=== PATIENT | male | born 1985 | race African-American/Black ===

== ENCOUNTER 2017-05-12 01:09 | Emergency (ER) | payer SELFPAY ==
[2017-05-12 01:50] VITALS: BP 128/81
[2017-05-12] MEDS ORDERED: DEXAMETHASONE SOD PHOS INJ 10 MG/1 ML VIAL IM ONE (04:34)
--- NOTE | 2017-05-12 05:26 | RADIOLOGY REPORT (SQ) ---
EXAM DESCRIPTION: ELBOW RIGHT AP/LAT COMPLETED DATE/TIME: 05/12/2017 4:59 am REASON FOR STUDY: right elbow pain COMPARISON: None. NUMBER OF VIEWS: Four views. TECHNIQUE: AP, lateral, and both oblique radiographic images acquired of the right elbow. LIMITATIONS: None. FINDINGS: MINERALIZATION: Normal. BONES: No acute fracture or dislocation. No worrisome bone lesions. JOINT: No effusion. SOFT TISSUES: Moderate nonspecific swelling at the lateral aspect of the right elbow. OTHER: No other significant finding. IMPRESSION: Moderate swelling. Bones and joints appear intact. No effusion. TECHNICAL DOCUMENTATION: JOB ID: [id number] [employer]- All Rights Reserved
--- NOTE | 2017-05-12 05:51 | ER Document Report ---
ED General - General Chief Complaint: Cough Stated Complaint: CHEST PAIN COLD LIKE SYMPTOMS Time Seen by Provider: 05/12/17 04:28 Notes: Patient is 31-year-old male who presents with complaint of pain in his right elbow. Patient says 3 weeks ago he was punching a punching bag any punch awkwardly and he felt something pop just above his elbow on the posterior aspect. Since then he has had swelling and pain in this area. Denies any pain in the shoulder wrist or hand. Says he is pain mainly when he tries to fully extend his elbow. Patient's second complaint is some runny nose cough and congestion. He says that his nephews is all have also had runny nose cough and congestion there diagnosed with strep throat and placed on amoxicillin. Denies any vomiting or diarrhea. He denies any fevers at home. His temperature in triage was 99.8. TRAVEL OUTSIDE OF THE [place] IN LAST 30 DAYS: No - Related Data Allergies/Adverse Reactions: clindamycin [Clindamycin] Allergy (Verified 07/27/14 15:31) Past Medical History - Social History Smoking Status: Unknown if Ever Smoked Frequency of alcohol use: None Drug Abuse: None Family History: Reviewed & Not Pertinent Patient has suicidal ideation: No Patient has homicidal ideation: No - Past Medical History Cardiac Medical History: Denies: Hx Hypertension Endocrine Medical History: Denies: Hx Diabetes Mellitus Type 2 Renal/ Medical History: Denies: Hx Peritoneal Dialysis - Immunizations Hx Diphtheria, Pertussis, Tetanus Vaccination: Yes Review of Systems - Review of Systems Notes: My Normal Review Basic REVIEW OF SYSTEMS: CONSTITUTIONAL : Denies fever, chills, or sweats. EENT: Is a congestion. CARDIOVASCULAR: Denies chest pain. RESPIRATORY: Cough GASTROINTESTINAL: Denies abdominal pain. Denies nausea, vomiting, or diarrhea. Denies constipation. Last BM: GENITOURINARY: Denies difficulty urinating, painful urination, burning, frequency, or blood in urine. MUSCULOSKELETAL: Right elbow pain. SKIN: Denies rash or skin lesions. NEUROLOGICAL: Denies altered mental status or loss of consciousness. Denies headache. Denies weakness or paralysis or loss of use of either side. Denies problems with gait or speech. Denies sensory or motor loss. ALL OTHER SYSTEMS REVIEWED AND NEGATIVE. Physical Exam - Vital signs Vitals: Temp Pulse Resp BP Pulse Ox 99.8 F 102 H 18 128/81 H 96 05/12/17 01:46 05/12/17 01:46 05/12/17 01:46 05/12/17 01:46 05/12/17 01:46 - Notes Notes: General Appearance: Well nourished, alert, cooperative, no acute distress, no obvious discomfort. Well-appearing. Vitals: reviewed, See vital signs table. Head: no swelling or tenderness to the head Eyes: PERRL, EOMI, Conjuctiva clear Mouth: No decreasd moisture Throat: No tonsillar inflammation, No airway obstruction, No lymphadenopathy Nose: Audible congestion on exam. Neck: Supple, no neck tenderness, Lungs: No wheezing, No rales, No rhonci, No accessory muscle use, good air exchange bilaterally. Heart: Normal rate, Regular rythm, No murmur, no rub Extremities: strength 5/5 in all extremities, good pulses in all extremities, patient does have some visible swelling over the triceps insertion just proximal to the elbow. No redness or inflammation. Patient is able to fully flex his elbow without any difficulty. Patient is able to almost completely extend his elbow but does have pain when he gets near the end of extension., no edema. Skin: warm, dry, appropriate color, no rash Neuro: speech clear, oriented x 3, normal affect, responds appropriately to questions. Course - Re-evaluation Re-evalutation: 05/12/17 06:18 I suspect the patient probably has a partial triceps muscle or triceps tendon tear. I will give him a sling to wear. I will have him follow-up with orthopedics. I encouraged him not to do any heavy lifting. Patient's also has just what appears to be upper respiratory infection. His red is not significantly erythematous. There is no tonsillar hypertrophy or exudates. He has a cough. I informed him that his symptoms are not consistent with that of strep throat. Does have a lot of nasal congestion consistent with that of a cold. I will give him a dose of Decadron to help with the sinus pressure and congestion that he is having. I encouraged him to return to the ER if he has fevers, difficulty breathing, or feels that he is getting worse. Patient agrees with plan and will be discharged home. Dictation of this chart was performed using voice recognition software; therefore, there may be some unintended grammatical errors. - Vital Signs Vital signs: Temp Pulse Resp BP Pulse Ox 99.8 F 102 H 18 128/81 H 96 05/12/17 01:46 05/12/17 01:46 05/12/17 01:46 05/12/17 01:46 05/12/17 01:46 Discharge - Discharge Clinical Impression: Elbow pain, right URI (upper respiratory infection) Qualifiers: URI type: unspecified URI Qualified Code(s): J06.9 - Acute upper respiratory infection, unspecified Condition: Good Disposition: HOME, SELF-CARE Additional Instructions: UPPER RESPIRATORY ILLNESS: You have a viral infection of the respiratory passages -- a "cold." This common infection causes nasal congestion, drainage, and often sore throat and cough. It is highly contagious. The disease usually lasts about 10 to 14 days. There is no "cure" for the viral infection -- it must run its course. If there is a complication, such as bacterial infection in the nose, sinuses, middle ear, or bronchial tubes, antibiotics may be required. The antibiotics won't affect the virus. Drink plenty of fluids. A humidifier may help. An expectorant medication or decongestant may make you more comfortable. Use acetaminophen or ibuprofen for fever or aches. See the doctor if fever persists over two days, if there is any significant worsening of your symptoms, or if you simply fail to improve as expected. STEROID MEDICATION: You have been given an injection of medicine of the cortisone/steroid class called Decadron. This medication is used to control inflammation or allergy. Piter t is usually only given for a short period of time, until the acute process subsides. There are usually no side effects from short-term use of cortisone-like medications. Some persons feel an increased sense of well-being and are not sleepy at bedtime. Long-term use of cortisone medications is best avoided, unless required for a severe condition. If your condition does not remit, or relapses after the course of corticosteroid medication, you should consult your physician. FOLLOW-UP CARE: If you have been referred to a physician for follow-up care, call the physician s office for an appointment as you were instructed or within the next two days. If you experience worsening or a significant change in your symptoms, notify the physician immediately or return to the Emergency Department at any time for re-evaluation. Please return to the ER immediately if you develop difficulty breathing, fevers not responding to Tylenol, or feel that your symptoms are worsening. Your xray did not show and broken bones, but it does show swelling over the elbow. This suggests that you most likely have a ligament or partial muscle tear. Please wear the sling for support and follow up with the orthopedist, (Dr. Johnson). Forms: Return to Work Referrals: JOSE E SHAH MD [ACTIVE STAFF] - Follow up in 3-5 days
== END 2017-05-12 06:20 | disposition home or self-care (01) ==
LOC: ER 01:09
DX: M25.521 Pain in right elbow (principal); M79.89 Other specified soft tissue disorders; J06.9 Acute upper respiratory infection, unspecified; R05 Cough; R09.81 Nasal congestion; R09.89 Other specified symptoms and signs involving the circulatory and respiratory systems; Z20.818 Contact with and (suspected) exposure to other bacterial communicable diseases; Z88.1 Allergy status to other antibiotic agents
CPT/HCPCS: 99283; 96372; 73070; J1100

== ENCOUNTER 2019-04-08 14:15 | Emergency (ER) | payer SELFPAY ==
[2019-04-08] MEDS ORDERED: ACETAMINOPHEN 325 MG TABLET PO ONE (14:51)
--- NOTE | 2019-04-08 15:24 | RADIOLOGY REPORT (SQ) ---
EXAM DESCRIPTION: SHOULDER RIGHT 2 OR MORE VIEWS COMPLETED DATE/TIME: 04/08/2019 3:13 pm REASON FOR STUDY: R shoulder pain COMPARISON: None. NUMBER OF VIEWS: Three views. TECHNIQUE: Internal rotation, external rotation, and Y view images acquired of the right shoulder. LIMITATIONS: None. FINDINGS: MINERALIZATION: Normal. BONES: No acute fracture. No worrisome bone lesions. JOINTS: No dislocation. VISUALIZED LUNGS AND RIBS: No pneumothorax. No rib fracture. SOFT TISSUES: No radiopaque foreign body. OTHER: No other significant finding. IMPRESSION: NEGATIVE STUDY OF THE RIGHT SHOULDER. NO RADIOGRAPHIC EVIDENCE OF ACUTE INJURY. TECHNICAL DOCUMENTATION: JOB ID: [id number] [employer]- All Rights Reserved Reading location - IP/workstation name: [email or web address]
--- NOTE | 2019-04-08 15:46 | ER Document Report ---
HPI - HPI Patient complains to provider of: r shoulder pain Time Seen by Provider: 04/08/19 14:37 Onset: Other - 2 wks Onset/Duration: Persistent Quality of pain: Achy Pain Level: 2 Context: Patient states that he slept on his right arm wrong and developed right shoulder pain that radiates into the right upper extremity. Patient complains of some numbness and tingling to the right forearm. Patient is right-hand dominant. Patient does do a lot of heavy lifting at his job. Patient denies any specific injury. Patient complains of increased pain with extension and abduction of the right shoulder joint. Associated Symptoms: Other - r shoulder joint pain. denies: Fever, Headache Exacerbated by: Movement Relieved by: Denies Similar symptoms previously: No Recently seen / treated by doctor: No - ROS ROS below otherwise negative: Yes Systems Reviewed and Negative: Yes All other systems reviewed and negative - CONSTITUTIONAL Constitutional: DENIES: Fever, Chills - NEURO Neurology: DENIES: Weakness - GASTROINTESTINAL Gastrointestinal: DENIES: Nausea - MUSCULOSKELETAL Musculoskeletal: REPORTS: Extremity pain - RUE. DENIES: Neck Pain - DERM Skin Color: Normal Skin Problems: None Past Medical History - General Information source: Patient - Social History Smoking Status: Current Every Day Smoker Chew tobacco use (# tins/day): No Smoking Education Provided: Yes Frequency of alcohol use: None Drug Abuse: None Occupation: moving and storage Family History: Reviewed & Not Pertinent Patient has suicidal ideation: No Patient has homicidal ideation: No - Medical History Medical History: Negative - Past Medical History Cardiac Medical History: Denies: Hx Hypertension Endocrine Medical History: Denies: Hx Diabetes Mellitus Type 2 Renal/ Medical History: Denies: Hx Peritoneal Dialysis Surgical Hx: Negative - Immunizations Hx Diphtheria, Pertussis, Tetanus Vaccination: Yes Vertical Provider Document - CONSTITUTIONAL Agree With Documented VS: Yes Exam Limitations: No Limitations General Appearance: WD/WN, No Apparent Distress - INFECTION CONTROL TRAVEL OUTSIDE OF THE [place] IN LAST 30 DAYS: No - HEENT HEENT: Atraumatic, Normocephalic - NECK Neck: Normal Inspection, Supple. negative: Lymphadenopathy-Left, Lym phadenopathy-Right Notes: No midline tenderness step-off or deformity - RESPIRATORY Respiratory: Breath Sounds Normal, No Respiratory Distress - CARDIOVASCULAR Cardiovascular: Regular Rate, Regular Rhythm Pulses: Normal: Radial - BACK Back: Normal Inspection - MUSCULOSKELETAL/EXTREMETIES Musculoskeletal/Extremeties: MAEW, Tender - Right shoulder joint tenderness with abduction, no dislocation or deformity. No crepitus. Patient with full passive range of motion., No Edema - NEURO Level of Consciousness: Awake, Alert, Appropriate Motor/Sensory: No Motor Deficit Notes: Normal strength and muscle tone to bilateral upper extremities. Normal it security project manager bilaterally. No evidence of radial, ulnar or median nerve deficit. - DERM Integumentary: Warm, Dry Course - Re-evaluation Re-evalutation: 04/08/19 15:44 Patient concerned that he needs x-ray performed today. X-ray reviewed, no concern for any bony abnormality to explain his pain symptoms. Patient does do heavy lifting at work. Discussed with patient concern about possible soft tissue injury and need for orthopedic or neurology follow-up for further evaluation. With distraction patient able to move her right shoulder through full range of motion. - Vital Signs Vital signs: Temp Pulse Resp BP Pulse Ox 98.5 F 75 14 132/64 H 98 04/08/19 14:24 04/08/19 14:24 04/08/19 14:24 04/08/19 14:24 04/08/19 14:24 - Diagnostic Test Radiology reviewed: Image reviewed, Reports reviewed Procedures - Immobilization Right Shoulder Pre-Proc Neuro Vasc Exam: Normal Immobilizer type: Shoulder immobilizer Performed by: PCT Post-Proc Neuro Vasc Exam: Normal Alignment checked and good: Yes Discharge - Discharge Clinical Impression: Right shoulder pain Qualifiers: Chronicity: acute Qualified Code(s): M25.511 - Pain in right shoulder Condition: Stable Disposition: HOME, SELF-CARE Instructions: Shoulder Injury ([facility]), Temporary Sling ([facility]) Additional Instructions: Return immediately for any new or worsening symptoms Followup with your primary care provider, call tomorrow to make a followup appointment Perform gentle range of motion exercises daily Wear shoulder immobilizer only for 3 or 4 days and then remove. Follow-up with orthopedics for further evaluation, call tomorrow for an appointment Prescriptions: Cyclobenzaprine HCl [Flexeril 10 Mg Tablet] 10 mg PO TID #15 tablet Naproxen [Naprosyn 250 Nmg Tablet] 1 tab PO BID #14 tablet Forms: Smoking Cessation Education, Restricted Release, Return to Work Referrals: [facility] [Provider Group] - Follow up tomorrow
[2019-04-08 15:55] VITALS: BP 128/72
== END 2019-04-08 15:54 | disposition home or self-care (01) ==
LOC: ER 14:15
DX: M25.511 Pain in right shoulder (principal); M79.601 Pain in right arm; R20.0 Anesthesia of skin; X50.0XXA Overexertion from strenuous movement or load, initial encounter; F17.200 Nicotine dependence, unspecified, uncomplicated
CPT/HCPCS: 73030; L3650; 99283

== ENCOUNTER 2019-05-17 00:23 | Emergency (ER) | payer SELFPAY ==
[2019-05-17 00:35] VITALS: BP 144/94
[2019-05-17] MEDS ORDERED: LIDOCAINE 1% INJ-PF (10 MG/ML) 30 ML SDV INJ ONE (04:40)
[2019-05-17] MEDS ORDERED: LIDOCAINE 4% TRANSPARENT DRESSING 5 GM KIT TP ONE (04:41)
[2019-05-17] MEDS ORDERED: ONDANSETRON 4 MG TAB.RAPDIS PO ONE (04:46)
[2019-05-17] MEDS ORDERED: OXYCODONE-ACETAMINOPHEN 5-325 MG TABLET PO ONE (04:46)
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
--- NOTE | 2019-05-17 05:27 | RADIOLOGY REPORT (SQ) ---
EXAM DESCRIPTION: CT CERVICAL SPINE WITHOUT IV CONTRAST COMPLETED DATE/TME: 05/17/2019 04:40 CLINICAL HISTORY: 33 years, Male, head injury, ETOH COMPARISON: None. TECHNIQUE: Axial CT images of the cervical spine were obtained without contrast. Sagittal and coronal reformats were performed. DLP 415 Images stored on PACS. All CT scanners at this facility use dose modulation, iterative reconstruction, and/or weight based dosing when appropriate to reduce radiation dose to as low as reasonably achievable (ALARA). [facility]: Dose Right [facility]: CareDose [facility]: Dose Right [facility]: Teradose 4D [facility]: [employer] LIMITATIONS: None. FINDINGS: The alignment of the cervical spine is satisfactory. There is no acute fracture or subluxation. The vertebral heights are maintained. The odontoid process is intact. The craniocervical junction is intact. The prevertebral soft tissues are normal. The spinal canal and neural foramen appear widely patent. IMPRESSION: No acute fracture or subluxation involving the cervical spine. TECHNICAL DOCUMENTATION: Quality ID # 436: Final reports with documentation of one or more dose reduction techniques (e.g., Automated exposure control, adjustment of the mA and/or kV according to patient size, use of iterative reconstruction technique) copyright 2010 [employer]- All Rights Reserved
--- NOTE | 2019-05-17 05:30 | RADIOLOGY REPORT (SQ) ---
EXAM DESCRIPTION: CT MAXILLOFACIAL WITHOUT IV CONTRAST COMPLETED DATE/TME: 05/17/2019 04:40 CLINICAL HISTORY: 33 years, Male, head injury, ETOH COMPARISON: None. TECHNIQUE: Axial CT images of the maxillofacial region were obtained without contrast. Sagittal and coronal reformats were performed. Images stored on PACS. All CT scanners at this facility use dose modulation, iterative reconstruction, and/or weight based dosing when appropriate to reduce radiation dose to as low as reasonably achievable (ALARA). [facility]: Dose Right [facility]: CareDose [facility]: Dose Right [facility]: Teradose 4D [facility]: [employer] LIMITATIONS: None. FINDINGS: There is soft tissue swelling along the left periorbital and left preseptal soft tissues. The globes are intact. No evidence of a retro-orbital hematoma. There is a mildly displaced fracture involving the medial aspect of the left orbital floor with the inferior rectus muscle likely protruding into the defect. There is a chronic appearing fracture involving the medial wall of the right orbit. There is an air hemorrhage level within the left maxillary sinus. The nasal bones and zygomatic arches appear intact. Maxilla and mandible appear intact. IMPRESSION: Mildly displaced fracture through the floor of the left orbit with the inferior rectus muscle slightly protruding into the defect without evidence of entrapment. No evidence of a retro-orbital hematoma. Air-hemorrhage level within the left maxillary sinus. TECHNICAL DOCUMENTATION: Quality ID # 436: Final reports with documentation of one or more dose reduction techniques (e.g., Automated exposure control, adjustment of the mA and/or kV according to patient size, use of iterative reconstruction technique) copyright 2011 [employer]- All Rights Reserved
== END 2019-05-17 08:08 | disposition home or self-care (01) ==
LOC: ER 00:23
DX: S02.32XA Fracture of orbital floor, left side, initial encounter for closed fracture (principal); S01.112A Laceration without foreign body of left eyelid and periocular area, initial encounter; Y04.2XXA Assault by strike against or bumped into by another person, initial encounter; Z88.1 Allergy status to other antibiotic agents
CPT/HCPCS: 99283; 70450; 70486; 72125; 12011; S0119; J3490 ×2

== ENCOUNTER 2020-06-04 23:38 | Emergency (ER) | payer SELFPAY ==
[2020-06-05 00:36] LABS: ABSOLUTE BASOPHILS # (AUTO) 0.1 10^3/uL (0.0-0.2); ABSOLUTE EOSINOPHILS # (AUTO) 0.2 10^3/uL (0.0-0.6); ABSOLUTE LYMPHOCYTES (AUTO) 3.1 10^3/uL (0.5-4.7); ABSOLUTE NEUT (AUTO) 3.9 10^3/uL (1.7-8.2); EOSINOPHILS % (AUTO) 1.9 % (0-6); HEMATOCRIT 43.1 % (37.9-51.0); HEMOGLOBIN 14.3 g/dL (13.5-17.0); LYMPHOCYTES % (AUTO) 37.5 % (13-45); MEAN CORPUSCULAR HEMOGLOBIN 27.5 pg (27.0-33.4); MEAN CORPUSCULAR HGB CONC 33.1 g/dL (32.0-36.0); MEAN CORPUSCULAR VOLUME 83 fl (80-97); MONOCYTES % (AUTO) 12.2 % (3-13); PLATELET COUNT 287 10^3/uL (150-450); RED BLOOD COUNT 5.19 10^6/uL (4.35-5.55); RED CELL DISTRIBUTION WIDTH 14.4 % (11.5-14.0); SEGMENTED NEUTROPHILS % (AUTO) 47.4 % (42-78); TOTAL CELLS COUNTED % (AUTO) 100 %; WHITE BLOOD COUNT 8.2 10^3/uL (4.0-10.5)
[2020-06-05 00:42] VITALS: BP 144/100
[2020-06-05 00:43] LABS: ALBUMIN 4.3 g/dL (3.5-5.0); ALKALINE PHOSPHATASE 66 U/L (38-126); ANION GAP 12 (5-19); ASPARTATE AMINO TRANSFERASE 23 U/L (17-59); BILIRUBIN,DIRECT 0.3 mg/dL (0.0-0.4); BILIRUBIN,TOTAL 0.3 mg/dL (0.2-1.3); BLOOD UREA NITROGEN 8 mg/dL (7-20); CALCIUM 9.5 mg/dL (8.4-10.2); CARBON DIOXIDE 27 mmol/L (22-30); CHLORIDE 104 mmol/L (98-107); GLUCOSE 122 mg/dL (75-110); POTASSIUM 3.9 mmol/L (3.6-5.0); TOTAL PROTEIN 6.9 g/dL (6.3-8.2)
[2020-06-05 00:44] LABS: ACETAMINOPHEN < 10 ug/mL (10-30); ALCOHOL < 10 mg/dL (NONE DETECTED); SALICYLATE < 1.0 mg/dL (2.0-20.0)
--- NOTE | 2020-06-05 00:45 | ER Document Report ---
ED General - General Stated Complaint: ALTERED MENTAL STATUS Time Seen by Provider: 06/04/20 23:57 TRAVEL OUTSIDE OF THE [place] IN LAST 30 DAYS: No - HPI Notes: Patient is a 34-year-old male who presents to the emergency department for evaluation. History is gathered from nursing, EMS, and the patient. The patient admits to "smoking a blunt." He states to me he believes it may have "been dipped in formaldehyde or something." He states he knowingly did this. He also said it could have been PCP. He really is not clear at this time, but admits he did this intentionally. Evidently sister knew he went inside the house, no he smoked marijuana, but started acting very strangely so she contacted EMS. The patient's only complaint at this time is that his mouth is dry. - Related Data Allergies/Adverse Reactions: clindamycin [Clindamycin] Allergy (Verified 04/08/19 14:18) Past Medical History - General Information source: Patient - Social History Smoking Status: Current Some Day Smoker Drug Abuse: Marijuana Family History: Reviewed & Not Pertinent, DM, Other - Depression, kidney disease - Past Medical History Cardiac Medical History: Denies: Hx Hypertension Endocrine Medical History: Denies: Hx Diabetes Mellitus Type 2 Renal/ Medical History: Denies: Hx Peritoneal Dialysis - Immunizations Hx Diphtheria, Pertussis, Tetanus Vaccination: Yes Review of Systems - Review of Systems -: Yes ROS unobtainable due to patient's medical condition - Altered mental status Physical Exam - Vital signs Vitals: Resp BP Pulse Ox 18 160/107 H 98 06/04/20 23:46 06/04/20 23:46 06/04/20 23:46 - Notes Notes: This is a 34-year-old male who appears his stated age, no acute distress. He has a GCS of 14, opens his eyes to verbal stimuli. He laughs and speaks inappropriately at times, but is intermittently cooperative with examiner. Vital signs reviewed, please refer to chart. Head is normocephalic, atraumatic. Pupils equal round, reactive to light. Neck is supple without meningismus. Heart is regular rate and rhythm. Lungs are clear to auscultation bilaterally. Abdomen is soft, nontender, normoactive bowel sounds throughout. Extremities without cyanosis, clubbing. Posterior calves are nontender. Peripheral pulses are equal. Skin is warm and dry. Patient is oriented to month, disoriented to year. He is able to tell me it is "the year of Covid and Trump." He is disoriented to place. He moves all 4 extremities spontaneously, follows commands intermittently. No gross facial asymmetry. Course - Re-evaluation Re-evalutation: 06/05/20 00:45 Patient presents to the emergency department for evaluation. Laboratory investigations are ordered. The patient is placed on a bus monitor. I do suspect that this is all substance abuse alteration. He is currently stable. Awaiting blood work, we will continue to monitor. 06/05/20 00:57 I was notified by nursing that patient's sister, present in the department, was very agitated with something about the patient's care and treatment. I cannot get into details about what the concerns were, but was notified that the sister was taking the patient out of the department. I was able to stop them in the hallway. I expressed my significant concern to the patient's sister that he is continuing to exhibit extreme signs of altered mental status. He reiterated th at he may have ingested PCP. I talked about the risks of PCP ingestion, and the extreme danger that he may in fact be to himself and others should he leave the department. I gave examples of PCP affected patients thinking they could fly and jumping off of buildings, thinking they could run as fast as cars, jumping out of moving automobiles, hallucinating. I explained to her that I was very concerned for his safety, even in her custody. We talked at length, and I was able to convince the patient as well as the sister that he would be best served by being observed here in the emergency department for some time. She voiced understanding, and the patient had agreed to stay. He was resting on the bed when I left the room, patient's sister was brought a can of soda by this physician. Patient already had IV removed. His vitals have been stable, I do not feel that IV placement at this time is necessary, but do believe a period of observation is most appropriate. 06/05/20 01:22 I was notified by nursing that approximately 3 minutes ago, patient sister loaded him into a wheelchair and absconded from the department with him. - Vital Signs Vital signs: Temp Pulse Resp BP Pulse Ox 98.1 F 17 144/100 H 98 06/05/20 00:00 06/05/20 00:00 06/05/20 00:00 06/05/20 00:00 - Laboratory Result Diagrams: 06/05/20 00:15 06/05/20 00:15 Laboratory results interpreted by me: 06/05/20 06/05/20 00:15 00:15 RDW 14.4 H Glucose 122 H Salicylates < 1.0 L Acetaminophen < 10 L - EKG Interpretation by Me Additional EKG results interpreted by me: 06/05/20 00:59 Sinus mechanism with a rate of 91 bpm. Normal axis and intervals. No acute ST changes concerning for ischemia or infarction. Largely unchanged when compared to prior study of 2015. Discharge - Discharge Clinical Impression: Intoxication Altered mental status Qualifiers: Coma depth: Selina coma 13-15 Disposition: AGAINST MEDICAL ADVICE
--- NOTE | 2020-06-05 08:58 | EKG REPORT ---
SEVERITY:- NORMAL ECG - SINUS RHYTHM : Confirmed by: Andre See 05-Jun-2020 08:57:22
== END 2020-06-05 01:20 | disposition left against medical advice (07) ==
LOC: ER 23:38
DX: F12.10 Cannabis abuse, uncomplicated (principal); R68.2 Dry mouth, unspecified; F17.200 Nicotine dependence, unspecified, uncomplicated; Z88.1 Allergy status to other antibiotic agents
CPT/HCPCS: 36415; 80053; 80307; 85025; 93005; 93010; 99284